=== PATIENT | female | born 1970 | race Two or more races ===

== ENCOUNTER 2020-04-11 14:02 | Emergency (ER) | payer OTHER ==
[~2020-04-11] VITALS: Ht 160 cm; Wt 78.5 kg
[2020-04-11 14:07] VITALS: BP 152/73
[2020-04-11] MEDS ORDERED: TETRACAINE HCL 0.5% OPTH(EYE) SOLN 4ML LEFTEYE ONE (16:00)
[2020-04-11] MEDS ORDERED: FLUORESCEIN SOD OPTH TEST STRIP LEFTEYE ONE (16:00)
== END 2020-04-11 17:33 | disposition home or self-care (01) ==
LOC: ER 14:02
DX: T26.91XA Corrosion of right eye and adnexa, part unspecified, initial encounter (principal); H16.001 Unspecified corneal ulcer, right eye; H10.9 Unspecified conjunctivitis; F41.9 Anxiety disorder, unspecified; I10 Essential (primary) hypertension; Y93.89 Activity, other specified; Y92.89 Other specified places as the place of occurrence of the external cause; Y99.8 Other external cause status

== ENCOUNTER 2021-09-01 06:46 | Emergency (ER) | payer MEDICAID, OTHER ==
[~2021-09-01] VITALS: Ht 160 cm; Wt 74.8 kg
[2021-09-01 06:53] VITALS: BP 125/82
[2021-09-01] MEDS ORDERED: KETOROLAC TROMETH 60MG/2ML VIAL IM ONE (07:45)
[2021-09-01] MEDS ORDERED: IBUP800T27 PO (08:29)
[2021-09-01] MEDS ORDERED: METH750T22 PO (08:29)
== END 2021-09-01 08:37 | disposition home or self-care (01) ==
LOC: ER 06:46
DX: M23.92 Unspecified internal derangement of left knee (principal); M54.42 Lumbago with sciatica, left side; E78.5 Hyperlipidemia, unspecified; I10 Essential (primary) hypertension
CPT/HCPCS: 73562; 96372; 99283; J1885

== ENCOUNTER 2022-02-17 12:56 | Emergency (ER) | payer MEDICAID ==
[~2022-02-17] VITALS: Ht 160 cm; Wt 74.0 kg
[~2022-02-17 12:56] MED LIST: IBUP800T27 PO; METH750T22 PO
[2022-02-17 14:10] VITALS: BP 123/73
[2022-02-17] MEDS ORDERED: IBUP800T27 PO (14:22)
[2022-02-17] MEDS ORDERED: METH750T22 PO (14:22)
[2022-02-17] MEDS ORDERED: KETOROLAC TROMETH 60MG/2ML VIAL IM ONE (14:30)
== END 2022-02-17 15:00 | disposition home or self-care (01) ==
LOC: ER 13:06
DX: M54.42 Lumbago with sciatica, left side (principal); M62.838 Other muscle spasm; E78.5 Hyperlipidemia, unspecified; I10 Essential (primary) hypertension
CPT/HCPCS: 96372